=== PATIENT | female | born 1970 | race Hispanic/Latino ===

== ENCOUNTER 2019-03-24 08:34 | Day surgery (SDC) | payer BC ==
[~2019-03-24 08:34] MED LIST: NACL 0.9% 1000 ML 1,000 ML IV SCH
--- NOTE | 2019-03-24 09:08 | Anesthesia Consultation ---
Anesthesia Consult and Med Hx Date of service: 03/24/19 - Airway Anesthetic Teeth Evaluation: Good ROM Head & Neck: Adequate Mental/Hyoid Distance: Adequate Mallampati Class: Class II Intubation Access Assessment: Good - Pulmonary Exam CTA: Yes - Cardiac Exam Cardiac Exam: RRR - Pre-Operative Health Status ASA Pre-Surgery Classification: ASA2 Proposed Anesthetic Plan: MAC - Pulmonary Hx Smoking: Yes - Gastrointestinal Hx Gastroesophageal Reflux Disease: Yes
--- NOTE | 2019-03-24 09:09 | Anesthesia Day of Surgery ---
Anesthesia Day of Surgery - Day of Surgery Patient Examined: Yes Patient H&P Reviewed: Yes Patient is NPO: Yes
[2019-03-24] MEDS ORDERED: DIPRIVAN 10 MG/ML IV ONE ×3 (09:18)
[2019-03-24 10:08] VITALS: BP 125/77
--- NOTE | 2019-03-24 10:18 | Operative Report ---
PROCEDURE: Colonoscopy with biopsy. INDICATIONS: This is a 48-year-old white female in otherwise good health, who does have a history of smoking, does have a family history of cancer. The patient's maternal grandfather had colon cancer. She has never had a colonoscopy done before. Colonoscopy was done as part of colon polyp screening. DESCRIPTION OF PROCEDURE: Procedure was done after getting informed consent with MAC anesthesia. Initial rectal exam was unremarkable, except for the presence of moderate External Hemorrhoids Instrument was passed through the rectum onto the cecum, which was identified by the ileocecal valve and the appendiceal orifice. Visualization was fair to good. The cecum was visualized also on the retroverted view and no additional pathology was noted. The cecum, ascending colon, transverse colon, descending colon, and sigmoid showed normal mucosa. There were no polyps, colitis or diverticular disease noted in these parts of the colon in the rectosigmoid area and in the distal sigmoid, there were multiple small polyps noted, possibly hyperplastic and they were removed by cold biopsy. The rectum showed some minor internal hemorrhoids on the retroverted view and there was minimal bleeding associated with the polypectomy and no complications associated with the procedure. Procedure was done in the GI lab with assistance of the GI lab team, which included Stephanie VASQUEZ; Eleazar kevin and with assistance of Anesthesia. ASSESSMENT: Colon polyp screening, family history of colon cancer. Maternal grandfather had colon cancer. Multiple small rectosigmoid polyps, possibly hyperplastic. Minor internal hemorrhoid, and moderate External Hemorrhoids. Again, there was minimal bleeding associated with the polypectomy and no complications associated with the procedure. The patient will be asked to resume previous medication to avoid aspirin and aspirin-related products for the next few days and follow up in the office in 1-2 weeks' time. Again, procedure was done in the presence of the GI lab team, which included Stephanie VASQUEZ, as well as Eleazar kevin and with assistance of Anesthesia. JOB# [id number] CHALINO/ANGELES ARRINGTON
[2019-03-24] MEDS ORDERED: NACL 0.9% 1000 ML 1,000 ML ONE (13:44)
--- NOTE | 2019-03-24 15:43 | Post Anesthesia Evaluation ---
- Post Anesthesia Evaluation Patient Participated: Yes Airway Patent: Yes Stable Respiratory Function: Yes Nausea/Vomiting: No Temp > 96.8F: Yes Pain Manageable: Yes Adequeate Hydration: Yes Anesthesia Complications: No Block Receding Appropriately: Not Applicable Patient on Ventilator: No
== END 2019-03-24 10:18 | disposition home or self-care (01) ==
LOC: GIO 08:34
DX: Z12.11 Encounter for screening for malignant neoplasm of colon (principal); K63.5 Polyp of colon; K62.1 Rectal polyp; K64.8 Other hemorrhoids; K57.30 Diverticulosis of large intestine without perforation or abscess without bleeding; F17.210 Nicotine dependence, cigarettes, uncomplicated; K21.9 Gastro-esophageal reflux disease without esophagitis; Z90.710 Acquired absence of both cervix and uterus; Z80.0 Family history of malignant neoplasm of digestive organs; Z98.890 Other specified postprocedural states
CPT/HCPCS: 45380; 88305; J2704; J7030